=== PATIENT | female | born 1970 | race Caucasian/White ===

== ENCOUNTER 2021-06-16 13:22 | Outpatient (REF) | payer SELFPAY ==
[2021-06-17 15:15] LABS: COVID-19 RT-PCR UVMMC Result Negative (Negative)
== END 2021-06-16 13:23 | disposition home or self-care (01) ==
LOC: LBN 13:22
PROVIDERS: PCP General Practice; Visit Provider Naturopath
DX: Z11.52 Encounter for screening for COVID-19 (principal)
CPT/HCPCS: U0003

== ENCOUNTER 2021-07-10 22:01 | Outpatient (REF) | payer SELFPAY ==
[2021-07-12 12:48] LABS: COVID-19 RT-PCR UVMMC Result Negative (Negative)
== END 2021-07-10 22:02 | disposition home or self-care (01) ==
LOC: NCHCN 22:01
PROVIDERS: PCP General Practice; Visit Provider Naturopath
DX: Z11.52 Encounter for screening for COVID-19 (principal)
CPT/HCPCS: U0003

== ENCOUNTER 2021-07-18 07:25 | Outpatient (CLI) | payer SELFPAY ==
[2021-07-18 21:17] LABS: COVID-19 RT-PCR UVMMC Result Negative (Negative)
== END 2021-07-18 07:26 | disposition home or self-care (01) ==
PROVIDERS: PCP General Practice; Visit Provider Naturopath
DX: Z20.822 Contact with and (suspected) exposure to COVID-19 (principal)
CPT/HCPCS: U0003

== ENCOUNTER 2021-07-27 21:15 | Outpatient (REF) | payer SELFPAY ==
[2021-07-28 22:58] LABS: COVID-19 RT-PCR UVMMC Result Negative (Negative)
== END 2021-07-27 21:16 | disposition home or self-care (01) ==
LOC: LBN 21:15
PROVIDERS: PCP General Practice; Visit Provider Naturopath
DX: Z11.52 Encounter for screening for COVID-19
CPT/HCPCS: U0003

== ENCOUNTER 2021-08-01 16:54 | Outpatient (REF) | payer SELFPAY ==
[2021-08-02 21:43] LABS: COVID-19 RT-PCR UVMMC Result Negative (Negative)
--- OUTSIDE RECORDS SUMMARY | 2021-08-06 16:56 | XMS_ITS | CCD ---
:1970 Author Care Team Providers Name Role Phone Mina RITTER ND Attending Physician Unavailable Vital Signs Unknown or Not Available. Allergies Unknown or Not Available. Procedures Unknown or Not Available. History of Immunizations Unknown or Not Available. Problems Unknown or Not Available. Results [facility] COVID RHEONIX - Collect Date/Time : 03/11/2021 10:45 Test Name Code Test Result Test Units Test Ref Range SOURCE= Anterior nasal N/A Tier- SYMPTOMS N/A SARS COV2 RNA: 07767-6 NEGATIVE N/A REFERENCE RAN GE: NEGAT Active Medications Unknown or Not Available. Medications Administered During Visit Unknown or Not Available. Encounters Encounter Diagnosis Diagnosis Code Start Date CONTACT WITH AND SUSPECTED EXPOSURE TO COVID-19 [id number] 03/11/2021 Social History Smoking Status Code Start Date End Date Never smoker [id number] Patient Decision Aids Unknown or Not Available. Discharge Instructions You were admitted to [facility] on 03/11/2021 21:32 with a principal diagnosis of Contact with and (suspected ) exposure to COVID-19 You had the following tests done: [facility] COVID RHEONIX You were discharged from [facility] on 03/11/2021 21:32 Should you have any questions prior to d ischarge, please contact a member of your healthcare team. If you have left the ho spital and have any questions, please contact your primary care physician. Chief Complaint and Reason For Visit Unknown or Not Available. Function Status Unknown or Not Available. Plan of Care Unknown or Not Available. Referral/Transition of Care Unknown or Not Available.
--- OUTSIDE RECORDS SUMMARY | 2021-08-06 16:56 | XMS_ITS | CCD ---
:1970 Author Care Team Providers Name Role Phone YOJANA RITTER Attending Physician Unavailable Vital Signs Unknown or Not Available. Allergies Unknown or Not Available. Procedures Unknown or Not Available. History of Immunizations Unknown or Not Available. Problems Unknown or Not Available. Results [facility] COVID RHEONIX - Collect Date/Time : 05/30/2021 11:00 Test Name Code Test Result Test Units Test Ref Range SOURCE= Anterior nasal N/A Tier- EXPOSURE N/A SARS COV2 RNA: 87674-7 NEGATIVE N/A REFERENCE RAN GE: NEGAT Active Medications Unknown or Not Available. Medications Administered During Visit Unknown or Not Available. Encounters Unknown or Not Available. Social History Smoking Status Code Start Date End Date Never smoker [id number] Patient Decision Aids Unknown or Not Available. Discharge Instructions You were admitted to [facility] 01 on 05/30/2021 08:57 You had the following tests done: [facility] COVID RHEONIX You were discharged from [facility] on 05/30/2021 08:57 Should you have any questions prior to [...]
== END 2021-08-01 16:55 | disposition home or self-care (01) ==
LOC: LBN 16:54
PROVIDERS: PCP General Practice; Visit Provider Naturopath
DX: Z11.52 Encounter for screening for COVID-19; Z20.822 Contact with and (suspected) exposure to COVID-19
CPT/HCPCS: U0003

== ENCOUNTER 2021-08-10 22:37 | Outpatient (REF) | payer SELFPAY ==
--- OUTSIDE RECORDS SUMMARY | 2021-08-10 22:38 | XMS_ITS | CCD ---
:1970 Author Care Team Providers Name Role Phone Malik NOLEN Attending Physician Unavailable Vital Signs Unknown or Not Available. Allergies Unknown or Not Available. Procedures Unknown or Not Available. History of Immunizations Unknown or Not Available. Problems Unknown or Not Available. Results [facility] COVID RHEONIX* - Collect Date/Too e: 08/04/2021 11:00 Test Name Code Test Result Test Units Test Ref Range SOURCE= Anterior nasal N/A Tier- EXPOSURE N/A SARS COV2 RNA: 94492-1 NEGATIVE N/A REFERENCE RAN GE: NEGAT Active Medications Unknown or Not Available. Medications Administered During Visit Unknown or Not Available. Encounters Unknown or Not Available. Social History Smoking Status Code Start Date End Date Never smoker [id number] Patient Decision Aids Unknown or Not Available. Discharge Instructions You were admitted to [facility] on 08/04/2021 19:15 You had the following tests done: [facility] COVID RHEONIX* You were discharged from [facility] on 08/04/2021 19:15 Should you have any questions prior to [...]
--- OUTSIDE RECORDS SUMMARY | 2021-08-10 22:38 | XMS_ITS | CCD ---
:1970 Author Care Team Providers Name Role Phone Mina RITTER ND Attending Physician Unavailable Vital Signs Unknown or Not Available. Allergies Unknown or Not Available. Procedures Unknown or Not Available. History of Immunizations Unknown or Not Available. Problems Unknown or Not Available. Results [facility] COVID RHEONIX - Collect Date/Time : 03/11/2021 10:45 Test Name Code Test Result Test Units Test Ref Range SOURCE= Anterior nasal N/A Tier- SYMPTOMS N/A SARS COV2 RNA: 09491-9 NEGATIVE N/A REFERENCE RAN GE: NEGAT Active Medications Unknown or Not Available. Medications Administered During Visit Unknown or Not Available. Encounters Encounter Diagnosis Diagnosis Code Start Date CONTACT WITH AND SUSPECTED EXPOSURE TO COVID-19 [id number] 03/11/2021 Social History Smoking Status Code Start Date End Date Never smoker [id number] Patient Decision Aids Unknown or Not Available. Discharge Instructions You were admitted to [facility] on 03/11/2021 21:32 with a principal diagnosis of Contact with and (suspected ) exposure to COVID-19 You had the following tests done: [facility] COVID RHEONIX You were discharged from [facility] on 03/11/2021 21:32 Should you [...]
--- OUTSIDE RECORDS SUMMARY | 2021-08-10 22:39 | XMS_ITS | CCD ---
[...] N/A Tier- EXPOSURE N/A SARS COV2 RNA: 55375-3 NEGATIVE N/A REFERENCE RAN GE: NEGAT Active Medications Unknown or Not Available. Medications Administered During Visit Unknown or Not Available. Encounters Unknown or Not Available. Social History Smoking Status Code Start Date End Date Never smoker [id number] Patient Decision Aids Unknown or Not Available. Discharge Instructions You were admitted to [facility] 01 on 05/30/2021 08:57 You had the following tests done: [facility] COVID RHEONIX You were discharged from [facility] on 05/30/2021 08:57 Should you have any [...]
--- OUTSIDE RECORDS SUMMARY | 2021-08-10 22:39 | XMS_ITS | CCD ---
:1970 Author Care Team Providers Name Role Phone JUSTINEYOJANA Attending Physician Unavailable Vital Signs Unknown or Not Available. Allergies Unknown or Not Available. Procedures Unknown or Not Available. History of Immunizations Unknown or Not Available. Problems Unknown or Not Available. Results ALK PHOSPHATASE TOTAL AND ISOENZYMES - C ollect Date/Time: 03/11/2021 10:31 Test Name Code Test Result Test Units Test Ref Range Liver 1 % 47242-9 52.8 % 27.8-76.3 Liver 1 46097-0 67.1 IU/L 16.2-70.2 Liver 2 % 45410-3 3.0 % 0.0-8.0 Liver 2 33022-2 3.8 IU/L 0.0-5.8 Bone % 81781-3 40.0 % 19.1-67.7 Bone 1777-2 50.8 IU/L 12.1-42.7 Intestine % 40264-2 4.2 % 0.0-20.6 Intestine 1778-0 5.3 IU/L 0.0-11.0 Alkaline 6768-6 127 N/A 35 - 104 Phosphatase, S Placental 02487-3 NotPresent N/A Not present Active Medications Unknown or Not Available. Medications Administered During Visit Unknown or Not Available. Encounters Encounter Diagnosis Diagnosis Code Start Date Enzyme level in serum specimen above reference [id number] 03/11/2021 range Social History Smoking Status Code Start Date End Date Never smoker [id number] Patient Decision Aids Unknown or Not Available. Discharge Instructions You were admitted to [facility] on 03/11/2021 10:25 with a principal diagnosis of Abnormal levels of other se rum enzymes You had the following tests done: ALK PHOSPHATASE TOTAL AND ISOENZYMES You were discharged from [facility] on 03/11/2021 10:25 Should you have any questions prior to d ischarge, please contact a member of your healthcare team. If you have left the spital and have any questions, please contact your primary care physician. Chief Complaint and Reason For Visit Unknown or Not Available. Function Status Unknown or Not Available. Plan of Care Unknown or Not Available. Referral/Transition of Care Unknown or Not Available.
[2021-08-11 22:20] LABS: COVID-19 RT-PCR UVMMC Result Negative (Negative)
== END 2021-08-10 22:38 | disposition home or self-care (01) ==
LOC: LBN 22:37
PROVIDERS: PCP General Practice; Visit Provider Naturopath
DX: Z11.52 Encounter for screening for COVID-19 (principal); Z20.822 Contact with and (suspected) exposure to COVID-19
CPT/HCPCS: U0003

== ENCOUNTER 2021-08-17 21:37 | Outpatient (REF) | payer SELFPAY ==
--- OUTSIDE RECORDS SUMMARY | 2021-08-17 21:45 | XMS_ITS | CCD ---
:1970 Author Care Team Providers Name Role Phone YOJANA RITTER Attending Physician Unavailable Vital Signs Unknown or Not Available. Allergies Unknown or Not Available. Procedures Unknown or Not Available. History of Immunizations Unknown or Not Available. Problems Unknown or Not Available. Results [facility] COVID RHEONIX - Collect Date/Time : 05/30/2021 11:00 Test Name Code Test Result Test Units Test Ref Range SOURCE= Anterior nasal N/A Tier- EXPOSURE N/A SARS COV2 RNA: 48023-2 NEGATIVE N/A REFERENCE RAN GE: NEGAT Active Medications Unknown or Not Available. Medications Administered During Visit Unknown or Not Available. Encounters Unknown or Not Available. Social History Smoking Status Code Start Date End Date Never smoker [id number] Patient Decision Aids Unknown or Not Available. Discharge Instructions You were admitted to [facility] 01 on 05/30/2021 08:57 You had the following tests done: [facility] COVID RHEONIX You were discharged from [facility] on 05/30/2021 08:57 Should you [...]
--- OUTSIDE RECORDS SUMMARY | 2021-08-17 21:46 | XMS_ITS | CCD ---
[...] Units Test Ref Range Liver 1 % 31746-4 52.8 % 27.8-76.3 Liver 1 93397-1 67.1 IU/L 16.2-70.2 Liver 2 % 02771-2 3.0 % 0.0-8.0 Liver 2 94854-5 3.8 IU/L 0.0-5.8 Bone % 08888-9 40.0 % 19.1-67.7 Bone 1777-2 50.8 IU/L 12.1-42.7 Intestine % 19800-4 4.2 % 0.0-20.6 Intestine 1778-0 5.3 IU/L 0.0-11.0 Alkaline 6768-6 127 N/A 35 - 104 Phosphatase, S Placental 83196-4 NotPresent N/A Not present Active Medications Unknown or Not Available. Medications Administered During Visit Unknown or Not Available. Encounters Encounter Diagnosis Diagnosis Code Start Date Enzyme level in serum specimen above reference [id number] 03/11/2021 range Social History Smoking Status Code Start Date End Date Never smoker [id number] Patient Decision Aids Unknown or Not Available. [...]
--- OUTSIDE RECORDS SUMMARY | 2021-08-17 21:46 | XMS_ITS | CCD ---
:1970 Author Care Team Providers Name Role Phone Mina RITTER ND Attending Physician Unavailable Vital Signs Unknown or Not Available. Allergies Unknown or Not Available. Procedures Unknown or Not Available. History of Immunizations Unknown or Not Available. Problems Unknown or Not Available. Results [facility] COVID RHEONIX - Collect Date/Time : 03/11/2021 10:45 Test Name Code Test Result Test Units Test Ref Range SOURCE= Anterior nasal N/A Tier- SYMPTOMS N/A SARS COV2 RNA: 25411-1 NEGATIVE N/A REFERENCE RAN GE: NEGAT Active Medications Unknown or Not Available. Medications Administered During Visit Unknown or Not Available. Encounters Encounter Diagnosis Diagnosis Code Start Date CONTACT WITH AND SUSPECTED EXPOSURE TO COVID-19 [id number] 03/11/2021 Social History Smoking Status Code Start Date End Date Never smoker [id number] Patient Decision Aids Unknown or Not Available. Discharge Instructions You were admitted to [facility] on 03/11/2021 21:32 with a principal diagnosis of Contact with and (suspected ) exposure to COVID-19 You had the following tests done: [facility] COVID RHEONIX You were discharged from [facility] on 03/11/2021 21:32 Should you have any [...]
[2021-08-19 18:25] LABS: COVID-19 RT-PCR UVMMC Result Negative (Negative)
== END 2021-08-17 21:38 | disposition home or self-care (01) ==
LOC: LBN 21:37
PROVIDERS: PCP General Practice; Visit Provider Naturopath
DX: Z20.822 Contact with and (suspected) exposure to COVID-19 (principal)
CPT/HCPCS: U0003

== ENCOUNTER 2021-08-29 20:58 | Outpatient (REF) | payer SELFPAY ==
[2021-08-31 10:45] LABS: COVID-19 RT-PCR UVMMC Result Negative (Negative)
== END 2021-08-29 20:59 | disposition home or self-care (01) ==
LOC: LBN 20:58
PROVIDERS: PCP General Practice; Visit Provider Naturopath
DX: Z20.822 Contact with and (suspected) exposure to COVID-19 (principal)
CPT/HCPCS: U0003

== ENCOUNTER 2021-09-11 20:47 | Outpatient (REF) | payer SELFPAY ==
[2021-09-13 08:59] LABS: COVID-19 RT-PCR UVMMC Result Negative (Negative)
== END 2021-09-11 20:48 | disposition home or self-care (01) ==
LOC: LBN 20:47
PROVIDERS: PCP General Practice; Visit Provider Naturopath
DX: Z20.822 Contact with and (suspected) exposure to COVID-19 (principal)
CPT/HCPCS: U0003

== ENCOUNTER 2021-09-19 18:56 | Outpatient (REF) | payer SELFPAY ==
[2021-09-20 00:39] LABS: COVID-19 RT-PCR UVMMC Result Negative (Negative)
== END 2021-09-19 18:57 | disposition home or self-care (01) ==
LOC: LBN 18:56
PROVIDERS: PCP General Practice; Visit Provider Naturopath
DX: Z20.822 Contact with and (suspected) exposure to COVID-19 (principal)
CPT/HCPCS: U0003

== ENCOUNTER 2021-09-26 22:55 | Outpatient (REF) | payer SELFPAY ==
[2021-09-27 22:05] LABS: COVID-19 RT-PCR UVMMC Result Negative (Negative)
== END 2021-09-26 22:56 | disposition home or self-care (01) ==
LOC: LBN 22:55
PROVIDERS: PCP General Practice; Visit Provider Naturopath
DX: Z20.822 Contact with and (suspected) exposure to COVID-19 (principal)
CPT/HCPCS: U0003